=== PATIENT | male | born 1965 | race Caucasian/White ===

== ENCOUNTER 2019-03-03 13:36 | Inpatient (IN) | payer OTHER ==
[~2019-03-03] VITALS: Ht 185.4 cm; Wt 146.1 kg
[~2019-03-03 13:36] MED LIST: NOHOMEMEDICATIONS; NORCO 5-325 TA1 EACH PO
[2019-03-03 13:44] VITALS: BP 146/103
[2019-03-03] MEDS ORDERED: LISINOPRIL2.5 MG PO (13:49)
[2019-03-03] MEDS ORDERED: ZOCOR20 MG PO (13:49)
[2019-03-03 14:09] LABS: ABSOLUTE BASOPHILS 0.1 thou/uL (0.0-0.2); ABSOLUTE EOSINOPHILS 0.4 thou/uL (0.0-0.7); ABSOLUTE LYMPHOCYTES 2.6 thou/uL (0.8-5.3); ABSOLUTE MONOCYTES 0.7 thou/uL (0.0-1.2); ABSOLUTE NEUTROPHILS 6.2 thou/uL (1.6-8.1); BASOPHILS 1.1 %; EOSINOPHILS 3.6 %; HEMATOCRIT 46.2 % (42.0-52.0); HEMOGLOBIN 15.6 gm/dL (14.0-18.0); LYMPHOCYTES 25.9 %; MCH 29.5 pg (26.0-34.0); MCHC 33.8 g/dL (28.0-37.0); MCV 87.1 fL (80.0-100.0); MONOCYTES 7.2 %; MPV 8.5 fl. (7.2-11.1); NUCLEATED RBCS 0 /100WBC; PLATELET COUNT* 250 thou/uL (150-400); POLYS 62.2 %; RDW-CV 13.1 % (10.5-14.5); WBC 9.9 thou/uL (4.0-11.0)
[2019-03-03 14:21] LABS: CALCIUM 9.3 mg/dL (8.5-10.1); POTASSIUM 4.7 mmol/L (3.5-5.1)
[2019-03-03 14:26] LABS: ALBUMIN 3.9 g/dL (3.4-5.0); TOTAL BILIRUBIN 0.2 mg/dL (<0.1-1.0); TOTAL PROTEIN 7.7 g/dL (6.4-8.2)
[2019-03-03 16:00] VITALS: BP 158/91
[2019-03-03 16:04] VITALS: BP 140/87
--- NOTE | 2019-03-03 17:22 | NUR ---
PATIENT ARRIVED FROM ER THIS AFTERNOON. PATIENT SETTLED TO ROOM AND HISTORY, ASSESSMENT AND VITALS COMPLETED AND DOCUMENTED. PATIENT IS UP AD KT IN ROOM. PATIENT HAS COMPLAINTS OF ABDOMINAL PAIN WITH PARTIAL RELIEF WITH MEDICATION. PATIENT DENIES ANY NEEDS AT THIS TIME. CALL LIGHT WITHIN REACH. WILL CONTINUE TO MONITOR.
[2019-03-03 21:00] VITALS: BP 126/75
[2019-03-04 05:43] LABS: CALCIUM 8.6 mg/dL (8.5-10.1); CREATININE 0.9 mg/dL (0.6-1.3); POTASSIUM 4.2 mmol/L (3.5-5.1)
--- NOTE | 2019-03-04 06:10 | NUR ---
PT ALERT AND ORIENTED. VSS ON RA. ASSESSMENT COMPLETED AND DOCUMENTED. PT SLEPT THROUGH SHIFT. PT AGREES TO PAIN OF 6/10 BUT REFUSES PAIN MEDS. NPO AT MIDNIGHT. 0.45 NS GOING AT 80ML/HR. PT UP AD KT. CALL LIGHT WITHIN REACH. PT DID NOT CALL OUT THIS SHIFT. HOURLY ROUNDINGS MADE. WILL CONTINUE TO MONITOR.
[2019-03-04 08:10] VITALS: BP 140/86
[2019-03-04 12:29] LABS: URINE BILIRUBIN NEGATIVE (Negative); URINE BLOOD NEGATIVE (Negative); URINE CLARITY CLEAR; URINE COLOR YELLOW; URINE GLUCOSE-RANDOM NEGATIVE (Negative); URINE KETONES NEGATIVE (Negative); URINE LEUKOCYTES-REFLEX NEGATIVE (Negative); URINE NITRITE-REFLEX NEGATIVE (Negative); URINE PROTEIN NEGATIVE (Negative); URINE UROBILINOGEN 0.2 E.U./dl (0.2-1.0)
[2019-03-04 13:23] VITALS: BP 140/86
--- NOTE | 2019-03-04 13:43 | NUR ---
PT.IN BED, AT BEDSIDE. THEY ARE WAITING ON UROLOGY TO MAKE ROUNDS TO DETERMINE PLAN FOR SURGERY. 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 THEY ARE CONCERNED THAT HIS INSURANCE IS OUT OF NETWORK AT THIS HOSPITAL. TOLD THEM IT IS OUT OF NETWORK BUT WE MATCH BENEFITS. THEY ASKED ABOUT [facility]. TOLD THEM I WAS UNSURE ABOUT [facility] BUT COULD CALL THERE AND ASK THEIR ADMITTING DEPT. THEY SAID THEY WOULD RATHER HAVE HIS SURGERY HERE IF THE COULD DO IT HERE.
--- NOTE | 2019-03-04 16:20 | NUR ---
PATIENT DISCHARGED TO HOME. DISCHARGE PAPERS REVIEWED AND SIGNED. NO PRESCRIPTIONS. WORK RELEASE PROVIDED PER DR NAVARRO. UROLOGY APPOINTMENT SCHEDULED. PATIENT DENIES ANY FURTHER NEEDS AT THIS TIME. PATIENT TAKEN BY WHEELCHAIR TO EXIT. LEFT WITH SPOUSE.
== END 2019-03-04 16:20 | disposition home or self-care (01) | DRG 394 ==
LOC: M.ERS 13:36 → M.TBA-ER 15:13 → M.3W 15:13
PROVIDERS: Nurse Practitioner Family; ADMIT Family Medicine
DX: K42.0 Umbilical hernia with obstruction, without gangrene (principal); Z68.41 Body mass index [BMI] 40.0-44.9, adult; J45.909 Unspecified asthma, uncomplicated; I10 Essential (primary) hypertension; N28.89 Other specified disorders of kidney and ureter; E66.01 Morbid (severe) obesity due to excess calories; E78.5 Hyperlipidemia, unspecified; Z87.891 Personal history of nicotine dependence; Z84.1 Family history of disorders of kidney and ureter; Z79.899 Other long term (current) drug therapy

== ENCOUNTER 2020-04-19 15:42 | Emergency (ER) | payer OTHER ==
[~2020-04-19] VITALS: Ht 185.4 cm; Wt 133.8 kg
[~2020-04-19 15:42] MED LIST changes: +ZESTRIL10 MG PO; +ZOCOR20 MG PO
[2020-04-19 15:59] LABS: ABSOLUTE EOSINOPHILS 0.3 thou/uL (0.0-0.7); ABSOLUTE LYMPHOCYTES 1.7 thou/uL (0.8-5.3); ABSOLUTE MONOCYTES 0.7 thou/uL (0.0-1.2); ABSOLUTE NEUTROPHILS 6.4 thou/uL (1.6-8.1); BASOPHILS 0.5 %; EOSINOPHILS 3.7 %; HEMATOCRIT 37.5 % (42.0-52.0); HEMOGLOBIN 12.7 gm/dL (14.0-18.0); LYMPHOCYTES 18.4 %; MCH 29.8 pg (26.0-34.0); MCHC 33.7 g/dL (28.0-37.0); MCV 88.4 fL (80.0-100.0); MONOCYTES 7.5 %; MPV 8.4 fl. (7.2-11.1); NUCLEATED RBCS 0 /100WBC; PLATELET COUNT* 248 thou/uL (150-400); POLYS 69.9 %; RBC 4.25 mil/uL (4.50-6.00); RDW-CV 13.2 % (10.5-14.5); WBC 9.2 thou/uL (4.0-11.0)
[2020-04-19] MEDS ORDERED: TYLENOL EXTRA500 MG PO (15:59)
[2020-04-19] MEDS ORDERED: ROXICODONE5 M2 PO (15:59)
[2020-04-19] MEDS ORDERED: ASA81BEC PO (15:59)
[2020-04-19] MEDS ORDERED: DOK100 MG PO (16:00)
[2020-04-19] MEDS ORDERED: FAMOTIDINE 20 M20 MG PO (16:00)
[2020-04-19] MEDS ORDERED: TRAMADOL 50 MG50 MG PO (16:00)
[2020-04-19 16:08] LABS: CALCIUM 8.4 mg/dL (8.5-10.1); CREATININE 1.8 mg/dL (0.6-1.3); POTASSIUM 4.3 mmol/L (3.5-5.1)
[2020-04-19 16:09] LABS: APTT 26.1 Seconds (25.0-31.3); INR 0.9; PROTIME 9.6 Seconds (9.20-11.50)
[2020-04-19 16:12] LABS: ALBUMIN 3.2 g/dL (3.4-5.0); TOTAL BILIRUBIN 0.2 mg/dL (<0.1-1.0); TOTAL PROTEIN 6.7 g/dL (6.4-8.2)
[2020-04-19 17:22] VITALS: BP 124/77
== END 2020-04-19 17:22 | disposition home or self-care (01) ==
LOC: M.ERS 15:42
PROVIDERS: Family Medicine
DX: S90.31XA Contusion of right foot, initial encounter (principal); M25.561 Pain in right knee; R60.0 Localized edema; J45.909 Unspecified asthma, uncomplicated; I10 Essential (primary) hypertension; Z96.651 Presence of right artificial knee joint; Z96.641 Presence of right artificial hip joint; X58.XXXA Exposure to other specified factors, initial encounter; Y93.89 Activity, other specified; Y92.89 Other specified places as the place of occurrence of the external cause; Y99.8 Other external cause status

== ENCOUNTER 2021-04-26 11:53 | Emergency (ER) | payer OTHER ==
[~2021-04-26] VITALS: Ht 185.4 cm; Wt 150.1 kg
[~2021-04-26 11:53] MED LIST changes: +ASA81BEC PO; +DOK100 MG PO; +FAMOTIDINE 20 M20 MG PO; +ROXICODONE5 M2 PO; +TRAMADOL 50 MG50 MG PO; +TYLENOL EXTRA500 MG PO
[2021-04-26 12:15] LABS: ABSOLUTE EOSINOPHILS 0.1 thou/uL (0.0-0.7); ABSOLUTE MONOCYTES 0.8 thou/uL (0.0-1.2); ABSOLUTE NEUTROPHILS 5.9 thou/uL (1.6-8.1); BASOPHILS 0.5 %; EOSINOPHILS 0.9 %; HEMATOCRIT 48.4 % (42.0-52.0); HEMOGLOBIN 16.6 gm/dL (14.0-18.0); MCH 30.9 pg (26.0-34.0); MCHC 34.2 g/dL (28.0-37.0); MCV 90.4 fL (80.0-100.0); MONOCYTES 8.6 %; MPV 8.7 fl. (7.2-11.1); NUCLEATED RBCS 0 /100WBC; PLATELET COUNT* 279 thou/uL (150-400); RBC 5.36 mil/uL (4.50-6.00); RDW-CV 13.3 % (10.5-14.5); WBC 8.8 thou/uL (4.0-11.0)
[2021-04-26 12:26] LABS: ANION GAP 12 mmol/L (7-16); BUN 29 mg/dL (7-18); CALCIUM 8.4 mg/dL (8.5-10.1); CHLORIDE 103 mmol/L (98-107); CO2 22 mmol/L (21-32); CREATININE 1.5 mg/dL (0.6-1.3); GLUCOSE 114 mg/dL (70-99); POTASSIUM 4.5 mmol/L (3.5-5.1); SODIUM 137 mmol/L (136-145)
[2021-04-26 12:43] LABS: ALBUMIN 3.4 g/dL (3.4-5.0); ALKALINE PHOSPHATASE 59 U/L (46-116); CK-MB MASS < 0.5 ng/mL (<0.5-3.6); LIPASE 148 U/L (73-393); MAGNESIUM 1.9 mg/dL (1.8-2.4); NT-PRO BRAIN NAT PEPTIDE 20 pg/mL (<300); SGOT 32 U/L (15-37); SGPT 53 U/L (30-65); TOTAL BILIRUBIN 0.5 mg/dL (<0.1-1.0); TOTAL PROTEIN 6.8 g/dL (6.4-8.2)
[2021-04-26] MEDS ORDERED: PREDNISONE 20 M20 M1 PO ×2 (13:59→14:01)
[2021-04-26 14:30] VITALS: BP 106/59
--- NOTE | 2021-04-26 16:09 | EKG ---
[place] [address] ELECTROCARDIOGRAM REPORT Name: ETHAN MARTINEZ Room: [facility]#: [id number] Admission: 04/26/21 Attend Phys: Discharge: 04/26/21 Date of : 63 Date of Service: 04/26/21 [facility] Report #: [id number] THIS REPORT FOR: //name// [facility] ED Test Date: 2021-04-26 Test Time: 12:00:23 Pat Name: ETHAN MARTINEZ Department: Room: Gender: National Sales Manager: [place] : 1965 Requested By: Quinten Ward Order Number: [id number] MD: Arthur Raman Measurements Intervals [place] Rate: 95 P: 52 [place]: 160 QRS: -27 QRSD: 91 T: 54 QT: 334 QTc: 420 Interpretive Statements Sinus rhythm Borderline left axis deviation Low voltage, precordial leads Abnormal R-wave progression, late transition No previous ECG available for comparison Electronically Signed On 04-26-2021 16:08:49 CDT by Arthur Raman [email or web address] <ELECTRONICALLY SIGNED> By: Arthur Raman MD, [facility] 04/26/21 1608 1200 1200 Arthur Raman MD, [facility] /EPI
== END 2021-04-26 14:30 | disposition home or self-care (01) ==
LOC: M.ERS 11:53
PROVIDERS: Family Medicine
DX: L50.9 Urticaria, unspecified (principal); J45.909 Unspecified asthma, uncomplicated; I10 Essential (primary) hypertension; Z96.641 Presence of right artificial hip joint